=== PATIENT | male | born 1975 | race Caucasian/White ===

== ENCOUNTER → 2017-06-30 | Outpatient (CLI) | payer OTHER ==
[~2017-06-30] MED LIST: AMARYL4 MG PO; AMITRIPTYLINE50 MG PO; ASPIRIN325 MG PO; CIPROFLOXACIN500 MG PO; COREG3.125 MG PO; GLUCOPHAGE1000 MG PO; ZITHROMAX250 MG PO; ZOVIRAX200 MG PO
[2017-06-30 19:35] LABS: ALBUMIN 4.7 gm/dl (3.1-4.5); ALKALINE PHOSPHATASE 101 U/L (45-117); BILIRUBIN, TOTAL 2.2 mg/dl (0.2-1.0); BUN 15 mg/dl (7-24); CARBON DIOXIDE 26 mmol/L (21-32); CHLORIDE 102 mmol/L (98-107); EST GLOM FILT AFRICAN AMERICAN > 60 ml/min; GLUCOSE 384 mg/dL (65-99); POTASSIUM 4.1 mmol/L (3.5-5.1); SGOT/AST 18 IU/L (3-35); SGPT/ALT 57 U/L (12-78); SODIUM 135 mmol/L (136-145); TOTAL PROTEIN 7.1 gm/dL (6.4-8.2)
[2017-06-30 19:42] LABS: HEMOGLOBIN A1c 5.9 % (4.8-5.6)
[2017-06-30 19:43] LABS: BASO # 0.1 10*3/uL (0.0-0.1); EOS # 0.9 10*3/uL (0.0-0.4); EOS % 6.4 % (1.0-4.0); HEMATOCRIT 34.3 % (42.0-52.0); HEMOGLOBIN 12.8 g/dl (14.0-18.0); IG # 0.1 10*3/uL (0.0-0.1); LYMPH # 3.9 10*3/uL (1.3-4.4); LYMPH % 26.9 % (27.0-41.0); MEAN CELL VOLUME 85.5 fl (80.0-94.0); MEAN CORPUSCULAR HGB 31.9 pg (27.0-31.0); MEAN PLATELET VOLUME 10.3 fl (9.6-12.3); MONO # 0.7 10*3/uL (0.1-1.0); MONO % 4.6 % (3.0-9.0); NEUT # 8.8 10*3/uL (2.3-7.9); NEUT % 60.1 % (47.0-73.0); NUCLEATED RED BLOOD CELL 0.1 % (0.0-0.0); PLATELET COUNT AUTOMATED 314 10*3/uL (130-400); RED BLOOD COUNT 4.01 10*6/uL (4.50-5.90); RED CELL DISTRI WIDTH 18.9 % (0-14.5); WHITE BLOOD COUNT 14.6 10*3/uL (4.8-10.8)
[2017-06-30 19:48] LABS: MEAN CORPUSCULAR HGB CONC 37.3 g/dl (33.0-37.0)
== END | disposition home or self-care (01) ==
LOC: LAB 18:43
PROVIDERS: Family Medicine
DX: E11.65 Type 2 diabetes mellitus with hyperglycemia (principal); D73.1 Hypersplenism; I10 Essential (primary) hypertension; R79.89 Other specified abnormal findings of blood chemistry

== ENCOUNTER 2017-07-23 10:48 | Emergency (ER) | payer OTHER ==
[~2017-07-23] VITALS: Ht 182.8 cm
[2017-07-23] MEDS ORDERED: NAPROSYN500 MG PO (11:04)
== END 2017-07-23 12:25 | disposition home or self-care (01) ==
LOC: ED 10:48
DX: S20.212A Contusion of left front wall of thorax, initial encounter (principal); R03.0 Elevated blood-pressure reading, without diagnosis of hypertension; F17.200 Nicotine dependence, unspecified, uncomplicated; Z79.899 Other long term (current) drug therapy; Z79.82 Long term (current) use of aspirin; W18.39XA Other fall on same level, initial encounter; Y93.89 Activity, other specified; Y92.89 Other specified places as the place of occurrence of the external cause; Y99.8 Other external cause status

== ENCOUNTER → 2020-09-10 | Outpatient (CLI) | payer BC ==
[~2020-09-10] MED LIST changes: +NAPROSYN500 MG PO; +ROBAXIN500 M1 PO
== END | disposition home or self-care (01) ==
LOC: US 09:30
PROVIDERS: ATTEND Internal Medicine
DX: I73.9 Peripheral vascular disease, unspecified (principal)

== ENCOUNTER → 2023-03-01 | Outpatient (CLI) | payer BC ==
[~2023-03-01] MED LIST changes: +METOPROLOL SUCC50 M1 PO
[2023-03-01 16:03] LABS: HEMATOCRIT 24.7 % (42.0-52.0); MEAN CELL VOLUME 85.8 fl (80.0-94.0); MEAN CORPUSCULAR HGB 29.2 pg (27.0-31.0); MEAN PLATELET VOLUME 9.1 fl (9.6-12.3); NUCLEATED RED BLOOD CELL 0.1 10*3/uL (0.0-0.0); NUCLEATED RED BLOOD CELL 1.4 % (0.0-0.0); PLATELET COUNT AUTOMATED 263 10*3/uL (130-400); RED BLOOD COUNT 2.88 10*6/uL (4.50-5.90); RED CELL DISTRI WIDTH 26.6 % (0-14.5); WHITE BLOOD COUNT 10.2 10*3/uL (4.8-10.8)
[2023-03-01 16:09] LABS: MANUAL DIFF REFLEX YES
[2023-03-01 16:33] LABS: BASOPHILS 2 % (0-1); TOTAL CELLS COUNTED 100 #CELLS
[2023-03-01 16:34] LABS: PLATELET SUFFICIENCY NORMAL (NORMAL); POLYCHROMASIA SLIGHT
[2023-03-01 16:47] LABS: ALKALINE PHOSPHATASE 103 U/L (46-116); BUN 17 mg/dl (9-23); CHLORIDE 107 mmol/L (98-107); CHOLESTEROL 94 mg/dL (<200); LDL CHOLESTEROL 50 mg/dL (9-159); POTASSIUM 4.6 mmol/L (3.4-5.1); SGPT/ALT 19 U/L (10-49); T3 UPTAKE 26.9 % (22.4-36.7); THYROID STIM HORMONE (HS) 1.577 uIU/ml (0.550-4.780); THYROXINE (T4) TOTAL 6.2 ug/dl (4.5-10.9); TOTAL PROTEIN 6.2 gm/dL (6.0-8.0); TRIGLYCERIDES 118 mg/dl (<150)
== END | disposition home or self-care (01) ==
LOC: LAB 15:34
PROVIDERS: ATTEND Pediatrics
DX: R05.9 Cough, unspecified (principal); R53.83 Other fatigue; D64.9 Anemia, unspecified; E55.9 Vitamin D deficiency, unspecified; R63.5 Abnormal weight gain

== ENCOUNTER 2023-04-30 15:06 | Emergency (ER) | payer BC ==
[~2023-04-30] VITALS: Ht 182.8 cm; Wt 90.7 kg
[2023-04-30 16:04] LABS: HEMATOCRIT 23.2 % (42.0-52.0); MEAN CELL VOLUME 87.2 fl (80.0-94.0); MEAN CORPUSCULAR HGB 30.5 pg (27.0-31.0); MEAN CORPUSCULAR HGB CONC 34.9 g/dl (33.0-37.0); NUCLEATED RED BLOOD CELL 0.2 10*3/uL (0.0-0.0); NUCLEATED RED BLOOD CELL 1.2 % (0.0-0.0); PLATELET COUNT AUTOMATED 260 10*3/uL (130-400); RED BLOOD COUNT 2.66 10*6/uL (4.50-5.90); RED CELL DISTRI WIDTH 26.8 % (0-14.5); WHITE BLOOD COUNT 12.1 10*3/uL (4.8-10.8)
[2023-04-30 16:14] LABS: MANUAL DIFF REFLEX YES
[2023-04-30 16:19] LABS: ACT PARTIAL THROMBO TIME 33.6 SECONDS (20.0-32.1)
[2023-04-30 16:22] LABS: ALKALINE PHOSPHATASE 97 U/L (46-116); BUN 16 mg/dl (9-23); CHLORIDE 107 mmol/L (98-107); LIPASE 32 U/L (12-53); POTASSIUM 4.3 mmol/L (3.4-5.1); SGPT/ALT 22 U/L (10-49); TOTAL PROTEIN 6.4 gm/dL (6.0-8.0)
[2023-04-30 16:42] LABS: TOTAL CELLS COUNTED 100 #CELLS
[2023-04-30 16:47] LABS: POLYCHROMASIA SLIGHT
[2023-04-30 16:48] LABS: MICROCYTOSIS MODERATE
[2023-04-30 16:49] LABS: PLATELET SUFFICIENCY NORMAL (NORMAL)
[2023-04-30] MEDS ORDERED: PREDNISONE50 MG PO (17:41)
[2023-04-30] MEDS ORDERED: ZITHROMAX250 MG PO (17:41)
== END 2023-04-30 18:39 | disposition home or self-care (01) ==
LOC: ED 15:06
PROVIDERS: Emergency Medicine
DX: J20.9 Acute bronchitis, unspecified (principal); F17.200 Nicotine dependence, unspecified, uncomplicated; Z89.422 Acquired absence of other left toe(s); Z98.890 Other specified postprocedural states

== ENCOUNTER → 2023-06-30 | Outpatient (CLI) | payer BC ==
[~2023-06-30] MED LIST changes: +PREDNISONE50 MG PO
[2023-06-30 16:45] LABS: BASO # 0.1 10*3/uL (0.0-0.1); BASO % 1.2 % (0.0-1.0); EOS # 0.3 10*3/uL (0.0-0.4); EOS % 2.8 % (1.0-4.0); HEMATOCRIT 28.3 % (42.0-52.0); LYMPH # 1.8 10*3/uL (1.3-4.4); LYMPH % 17.1 % (27.0-41.0); MEAN CORPUSCULAR HGB 28.4 pg (27.0-31.0); MEAN CORPUSCULAR HGB CONC 34.6 g/dl (33.0-37.0); MEAN PLATELET VOLUME 8.7 fl (9.6-12.3); MONO # 0.4 10*3/uL (0.1-1.0); MONO % 3.8 % (3.0-9.0); NEUT % 74.4 % (47.0-73.0); NUCLEATED RED BLOOD CELL 0.3 % (0.0-0.0); PLATELET COUNT AUTOMATED 233 10*3/uL (130-400); RED BLOOD COUNT 3.45 10*6/uL (4.50-5.90); WHITE BLOOD COUNT 10.7 10*3/uL (4.8-10.8)
[2023-06-30 17:22] LABS: ALKALINE PHOSPHATASE 97 U/L (46-116); BUN 8 mg/dl (9-23); CHLORIDE 107 mmol/L (98-107); CHOLESTEROL 100 mg/dL (<200); GAMMA GLUTAMYL TRANSPEPTIDASE 46 U/L (0-73); LDL CHOLESTEROL 55 mg/dL (9-159); LIPASE 34 U/L (12-53); POTASSIUM 3.9 mmol/L (3.4-5.1); SGPT/ALT 17 U/L (10-49); TOTAL PROTEIN 5.9 gm/dL (6.0-8.0); TRIGLYCERIDES 91 mg/dl (<150)
[2023-07-01 06:08] LABS: HBSAG Negative (Negative); HEP B CORE AB, IGM Negative (Negative); HEPATITIS C ANTIBODY Non Reactive (Non Reactive)
[2023-07-01 11:08] LABS: HEMOGOLBIN A1C <4.2 % (4.8-5.6)
== END | disposition home or self-care (01) ==
LOC: LAB 16:05
PROVIDERS: ATTEND Nurse Practitioner Family
DX: R06.02 Shortness of breath (principal); R50.9 Fever, unspecified

== ENCOUNTER → 2023-07-17 | Outpatient (CLI) | payer BC | END | disposition home or self-care (01) | LOC: CT 08:00 | PROVIDERS: ATTEND Nurse Practitioner Family | DX: R16.2 Hepatomegaly with splenomegaly, not elsewhere classified (principal); J90 Pleural effusion, not elsewhere classified; M79.89 Other specified soft tissue disorders; Z90.49 Acquired absence of other specified parts of digestive tract ==

== ENCOUNTER → 2023-08-10 | Outpatient (CLI) | payer BC | END | disposition home or self-care (01) | LOC: CARD 12:00 | PROVIDERS: ATTEND Nurse Practitioner Family | DX: R60.9 Edema, unspecified (principal) ==